=== PATIENT | male | born 1975 | race Two or more races ===

== ENCOUNTER 2019-11-01 15:06 | Emergency (ER) | payer SELFPAY ==
[~2019-11-01] VITALS: Ht 170.2 cm; Wt 81.6 kg
[2019-11-01] MEDS ORDERED: TETANUS-DIPTH-ACEL PERTUSSIS 0.5ML SYRG IM ONE (17:00)
[2019-11-01 18:00] VITALS: BP 134/95
== END 2019-11-01 18:07 | disposition home or self-care (01) ==
LOC: EDBD 15:06 → ER 15:28
DX: S00.03XA Contusion of scalp, initial encounter (principal); M79.89 Other specified soft tissue disorders; X58.XXXA Exposure to other specified factors, initial encounter; Y93.89 Activity, other specified; Y99.8 Other external cause status; Y92.89 Other specified places as the place of occurrence of the external cause
CPT/HCPCS: 70450; 72125; 90715; 96372